=== PATIENT | male | born 1980 | race Caucasian/White ===

== ENCOUNTER 2022-10-29 13:21 | Emergency (ER) | payer OTHER, SELFPAY ==
--- NOTE | 2022-10-29 13:43 | ED.GENADULT ---
HPI - General Adult General Chief complaint: Upper Respiratory Infection Stated complaint: congestion, rt ear pain Time Seen by Provider: 10/29/22 13:43 Source: patient Mode of arrival: ambulatory Limitations: no limitations History of Present Illness HPI narrative: 41-year-old male patient presents to the [facility] with complaints right ear pain that got increasingly worse yesterday. Patient states he was on a cruise this week and started having some pressure into the ear while on the cruise but he has coulee states that he was not able to have any medication while on the cruise. Patient did fly home on and has been increasingly worse since then. Denies taking any [id number] antihistamines. Related Data Home Medications Medication Instructions Recorded Confirmed omeprazole 40 mg capsule,delayed 40 mg PO DAILY 10/29/22 10/29/22 release Allergies Allergy/AdvReac Type Severity Reaction Status Date / Time No Known Allergies Allergy Verified 10/29/22 13:55 Review of Systems Review of Systems: CONSTITUTIONAL: Denies fever, chills, or sweats. EYES: Denies visual changes, redness, or discharge. ENT: Denies rhinorrhea, congestion, sore throat, positive Right otalgia. CARDIOVASCULAR: Denies chest pain, palpitations, or edema. RESPIRATORY: Denies cough or dyspnea. GASTROINTESTINAL: Denies abdominal pain, nausea, vomiting, or diarrhea. GENITOURINARY: Denies dysuria or hematuria. SKIN: Denies rash or itching. MUSCULOSKELETAL: Denies back pain, joint pain, or myalgia. NEUROLOGIC: Denies headache, numbness, or weakness. PSYCHIATRIC: Denies anxiety or depression. [facility] Past Medical History Medical History (Updated 10/29/22 @ 14:07 by NIRALI Holloway) No significant past medical history Comments at the time of my signature I agree with nursing past medical history, surgical, social, and family history. There is no relevant family history pertinent to the presenting complaint. Exam Narrative: GENERAL: Well-appearing, well-nourished, and in no acute distress. HEAD: Normocephalic, atraumatic. EYES: PERRLA and EOMI. ENT: Nares clear, no rhinorrhea or epistaxis. Mucous membranes moist. posterior pharynx with no erythema, tonsillar enlargement, exudates or lesions present. Patient has erythema noted to the right TM no drainage or foreign bodies the canal noted. NECK: Supple. No lymphadenopathy CHEST: Clear to auscultation. No respiratory distress. HEART: Regular rate and rhythm. No murmur heard. Normal peripheral pulses. ABDOMEN: Soft, nontender, nondistended, normal active bowel sounds. EXTREMITIES: Normal range of motion. No edema. SKIN: Warm, dry, no rash. NEURO: No focal deficits. Alert and oriented x3. Course Course Level of Care: Express Care Visit Vital Signs Vital signs: Vital Signs Temperature 37.0 C 10/29/22 13:49 Pulse Rate 95 10/29/22 13:49 Respiratory Rate 20 10/29/22 13:49 Blood Pressure 143/104 H 10/29/22 13:49 Pulse Oximetry 97 10/29/22 13:49 Oxygen Delivery Room Air 10/29/22 13:49 Temperature 37.0 C 10/29/22 13:49 Pulse Rate 95 10/29/22 13:49 Respiratory Rate 20 10/29/22 13:49 Blood Pressure 143/104 H 10/29/22 13:49 Pulse Oximetry 97 10/29/22 13:49 Oxygen Delivery Room Air 10/29/22 13:49 Vital signs reviewed. The patient has been informed that they may have pre-hypertension or Hypertension based on a BP reading in the department. I recommend that the patient call the primary care provider listed on their discharge instructions or a physician of their choice this week to arrange follow up for further evaluation of possible pre-hypertension or Hypertension Medical Decision Making MDM Narrative Medical decision making narrative: Discussed with patient does appear that he has an ear infection to the right ear. Plan cares to discharge home with oral antibiotics for the infection and encouraged him to take over-the-c
[2022-10-29 13:49] VITALS: BP 143/104; PULSE 95; RESP 20; TEMP 37; O2SAT 97
== END 2022-10-29 14:10 | disposition home or self-care (01) ==
PROVIDERS: Emergency Provider Nurse Practitioner Family; PCP Hospitalist
DX: H66.91 Otitis media, unspecified, right ear (principal)
CPT/HCPCS: 99203; G0463